=== PATIENT | male | born 1940 | race Caucasian/White ===

== ENCOUNTER 2017-01-05 08:00 | Outpatient (RCR) ==
[2015-06-21 22:37] VITALS: BMI 24.9
--- NOTE | 2016-12-22 15:01 | RS.OPPTEV2 ---
Date of Note: 12/21/16 Visit #: 1 Date of Evaluation: 12/21/16 Payer Source: MEDICARE Treatment Diagnosis: Gait abnormality, LE weakness History of Condition/Mechanism of Injury:: Patient reports having surgery to the cervical spine in July 2015 due to symptoms of LE weakness and decreased function. States symptoms have improved since surgery, but his legs continue to be weak. Functional Limitations: Standing, Squatting, Ambulation, Community Access/ Integration Current Subjective/complaints:: Patient reports leg weakness. States he is unable to stand very long or walk long distances. If he gets tired, he can hardly walk due to leg weakness. States he has numbness in the LE's at times, but this is much less than his symptoms prior to surgery. Reports he has very little pain, mostly soreness in his back. Denies dizziness. States he has decreased balance, especially when turning to change directions. Denies LE swelling. States she has COPD, which causes him to feel short of breath with walking. Medical History Medical History: COPD, Arthritis Medical History Comments:: History of low back pain Surgical History Comments:: Cervical spine surgery July 2015 with metal plating Smoking Status: Former smoker Hx Home Medications: Flomax Patient's Goals: His goal is to gain strength and improved balance. Functional Outcome Measure Tinetti: 22 (=21.5% impairment) - G Codes & Severity Modifier G Codes & Modifier: Mobility current CJ. Mobility goal CH Source of G Code score: Tinetti Assessment Observation - Observation Posture: Forward Head, Rounded Shoulders, Decreased Lumbar Lordosis Gait - Gait Pattern Gait Comments: Patient ambulates without an assistive device. He demonstrates minimal foot clearance, but does consistently clear both feet during swing phase. Demonstrates increased unsteadiness when turning to change directions. General Range of Motion: Bilateral LE AROM is WFL's. Muscle Strength: Bilateral hip strength 4 to 4+/5. Knee strength 4+/5, ankle strength 4+/5. Trunk strength 4/5. Balance - Sitting Balance Static Sitting Balance: Good Dynamic Sitting Balance: Good - Standing Balance Static Standing Balance: Good (-) Dynamic Standing Balance: Fair (+) - Comments Balance Assessment Comments: Patient demonstrates great difficulty with Limits of Stability program. He shows greatest difficulty hitting targets anterior and posterior to his VIRGIL. He has to finally move his feet to hit the targets. Coordination - Tests Bilateral Heel to Fabian: Mild Deviation Toe Tapping: Mild Deviation Comments: both tests show mild impairment with increased speed. Additional Comments: Additional Comments: Patient is able to perform transfers independently. He does use his UE's to perform sit to stand and is able to stand with one attempt. Bilateral hamstring length is limited. Demonstrates SLR left 35 degrees, right 35-40 degrees. Interventions - Exercise/Activities/Manual Therapy Exercises/Activities: Patient instructed in HS stretch, SLR's, and unsupported Ant/posterior weight shifting in sitting. Manual Therapy: NA HOME EXERCISE PROGRAM: HS stretch, SLR's, and unsupported Ant/posterior weight shifting in sitting - Charges Total Direct Minutes: 50 mins Total Treatment Time: 50 mins Procedures billed for this date of service:: [facility] Assessment Assessment: Patient presents to therapy with a diagnosis of balance disorder. He demonstrates LE weakness and impaired dynamic standing balance. He score 22/ 28 on Tinetti Assessment, showing him to be at risk for falls. He reports weakness limits his ability to walk community distances. He demonstrates good potential to benefit from strenthening exercises and coordination/balance activities to improve his functional ability and safety with ambulation. Patient Education: Education of diagnosis, Body/Joint mechanics, Home Exercise Program, Home Safety, Activity Modification, Education of Plan of Care Rehab Potential: Good Short Term Goals Goal #1: Bilateral hip strength 4+/5. Goal to be met by: 01/05/17 Goal #2: Trunk strength 4+/5. Goal to be met by: 01/05/17 Goal #3: Dynamic standing anterior/posterior balance improved to Good-/Good. Goal to be met by: 01/05/17 Goal #4: Patient to consistently turn while amb. with minimal disruption of gait. Goal to be met by: 01/05/17 [facility] Goals Goal #1: Pt knows HEP and to continue ex's to maintain functional level at D/C. Goal to be met by: 01/31/17 Goal #2: Score on Tinetti Assessment improved to 28/28. Goal to be met by: 01/31/17 Goal #3: Pt to amb. community distances with good safety & min. gait deviation. Goal to be met by: 01/31/17 Plan - Treatment to be Provided Procedures: Therapeutic Exercises, Therapeutic Activity, Neuromuscular Rehab, Patient Education Modalities: No Modalities - Treatment Plan Frequency: 2-3 X week Duration: 4 weeks ORDER # VISITS AND/OR THROUGH DATE: 01/31/17 - Treatment Code (1) Gait abnormality Code(s): R26.9 - UNSPECIFIED ABNORMALITIES OF GAIT AND MOBILITY Comments: R26.9 (2) Leg weakness, bilateral Code(s): R29.898 - OTH SYMPTOMS AND SIGNS INVOLVING THE MUSCULOSKELETAL SYSTEM Comments: R29.898 (3) Unstable balance Code(s): R26.89 - OTHER ABNORMALITIES OF GAIT AND MOBILITY Comments: r26.89
--- NOTE | 2016-12-23 09:26 | RS.OPPTDN ---
Subjective Date of Note: 12/23/16 Visit #: 2 Date of Evaluation: 12/21/16 Payer Source: MEDICARE Treatment Diagnosis: Gait abnormality, LE weakness Current Subjective/complaints:: Patient reports the R leg feels weaker than the L ,has difficulty with standing still more than with walking. Interventions - Exercise/Activities/Manual Therapy Exercises/Activities: 40 mins. of 90 / 90 hamstring stretches,then contract- relax for same stretch,3/10 SLR's to both LE's.Unsupported weight shift all directions for balance. Total minutes of Exercise: 40 Manual Therapy: NA Total minutes of Manual Therapy: 0 HOME EXERCISE PROGRAM: HS stretch, SLR's, and unsupported Ant/posterior weight shifting in sitting - Charges Total Direct Minutes: 40 Total Treatment Time: 40 Procedures billed for this date of service:: ex 3 Assessment: Patient has moderate hams. tightness bilaterally,L > R.he has good return demo of SLR with out pain.He reports weight shift to the R affects him more than to the L.He is very attentive and compliant to HEP recommendations. Patient Education: Education of diagnosis, Body/Joint mechanics, Home Exercise Program, Home Safety, Activity Modification, Education of Plan of Care Patient demonstrates compliance with HEP?: Yes Short Term Goals Goal #1: Bilateral hip strength 4+/5. Goal to be met by: 01/05/17 Goal #2: Trunk strength 4+/5. Goal to be met by: 01/05/17 Goal #3: Dynamic standing anterior/posterior balance improved to Good-/Good. Goal to be met by: 01/05/17 Goal #4: Patient to consistently turn while amb. with minimal disruption of gait. Goal to be met by: 01/05/17 Air Purifier Servicer Goals Goal #1: Pt knows HEP and to continue ex's to maintain functional level at D/C. Goal to be met by: 01/31/17 Goal #2: Score on Tinetti Assessment improved to . Goal to be met by: 01/31/17 Goal #3: Pt to amb. community distances with good safety & min. gait deviation. Goal to be met by: 01/31/17 Plan PLAN OF CARE EXPIRES ON:: 01/31/17 ORDER # VISITS AND/OR THROUGH DATE: 01/31/17 PLAN: Continue Plan of Care
--- NOTE | 2016-12-26 08:58 | RS.OPPTDN ---
Subjective Date of Note: 12/26/16 Visit #: 3 Date of Evaluation: 12/21/16 Payer Source: MEDICARE Treatment Diagnosis: Gait abnormality, LE weakness Current Subjective/complaints:: Patient rep[orts soreness from last PT session .but no sharp pain. Pain Assessment - Pain Description Pain Description: Dull, Aching Current Pain Intensity: not rated Interventions - Exercise/Activities/Manual Therapy Exercises/Activities: 40 mins. of 90 / 90 hamstring stretches,isometric hip abd /adduction , unsupported weight shift for trunk control,also with resistance given all directions.Leg press,3/15 reps with 60 # resistance,then one set of 15 reps. with L LE only @ 30 #. Total minutes of Exercise: 40 Manual Therapy: NA Total minutes of Manual Therapy: 0 HOME EXERCISE PROGRAM: HS stretch, SLR's, and unsupported Ant/posterior weight shifting in sitting - Charges Total Direct Minutes: 40 Total Treatment Time: 40 Procedures billed for this date of service:: ex 3 Assessment: Patient has improved hamstring flexibility bilaterally,with R tighter than L again today.The R LE strength is less than L ,but functional.He reports fatigue only with exercises today.He is very attentive to HEP recommendations. Patient Education: Body/Joint mechanics, Home Exercise Program, Home Safety, Education of Plan of Care Patient demonstrates compliance with HEP?: Yes Short Term Goals Goal #1: Bilateral hip strength 4+/5. Goal to be met by: 01/05/17 Progress towards Goal:: Progressing Goal #2: Trunk strength 4+/5. Goal to be met by: 01/05/17 Progress towards Goal:: Progressing Goal #3: Dynamic standing anterior/posterior balance improved to Good-/Good. Goal to be met by: 01/05/17 Goal #4: Patient to consistently turn while amb. with minimal disruption of gait. Goal to be met by: 01/05/17 [facility] Goals Goal #1: Pt knows HEP and to continue ex's to maintain functional level at D/C. Goal to be met by: 01/31/17 Progress towards goal: Progressing Goal #2: Score on Tinetti Assessment improved to . Goal to be met by: 01/31/17 Goal #3: Pt to amb. community distances with good safety & min. gait deviation. Goal to be met by: 01/31/17 Plan PLAN OF CARE EXPIRES ON:: 12/26/16 ORDER # VISITS AND/OR THROUGH DATE: 01/31/17 PLAN: Continue Plan of Care
--- NOTE | 2016-12-29 09:00 | RS.OPPTDN ---
Subjective Date of Note: 12/29/16 Visit #: 4 Date of Evaluation: 12/21/16 Payer Source: MEDICARE Treatment Diagnosis: Gait abnormality, LE weakness Current Subjective/complaints:: Patient reports he can cross his legs easier, feels the therapy is helping.He also reports he is doing his HEP. Pain Assessment - Pain Description Pain Description: muscle soreness only Current Pain Intensity: not rated Interventions - Exercise/Activities/Manual Therapy Exercises/Activities: 50 mins. of 90 / 90 hamstring stretches,SKTC,DKTC,lower trunk rotation,piriformis stretches.Strengthening exercises on leg press,06/22 @ 75 # for both LE's,then 06/17 @ 30 # for R leg only.Instructed in heel cord stretches in supine or standing. Total minutes of Exercise: 50 Manual Therapy: NA Total minutes of Manual Therapy: 0 HOME EXERCISE PROGRAM: HS stretch, SLR's, and unsupported Ant/posterior weight shifting in sitting.Lumbar flexibility of SKTC,DKTC,LTR. - Charges Total Direct Minutes: 50 Total Treatment Time: 50 Procedures billed for this date of service:: ex3 Assessment: Patient has steadier transfers and gait,improved trunk rotation as he ambulates.He also has improved hamstring extensibility bilaterally. Patient Education: Education of diagnosis, Body/Joint mechanics, Home Exercise Program, Home Safety, Activity Modification, Education of Plan of Care Patient demonstrates compliance with HEP?: Yes Short Term Goals Goal #1: Bilateral hip strength 4+/5. Goal to be met by: 01/05/17 Progress towards Goal:: Progressing Goal #2: Trunk strength 4+/5. Goal to be met by: 01/05/17 Progress towards Goal:: Progressing Goal #3: Dynamic standing anterior/posterior balance improved to Good-/Good. Goal to be met by: 01/05/17 Progress towards Goal:: Progressing Goal #4: Patient to consistently turn while amb. with minimal disruption of gait. Goal to be met by: 01/05/17 [facility] Goals Goal #1: Pt knows HEP and to continue ex's to maintain functional level at D/C. Goal to be met by: 01/31/17 Progress towards goal: Progressing Goal #2: Score on Tinetti Assessment improved to . Goal to be met by: 01/31/17 Goal #3: Pt to amb. community distances with good safety & min. gait deviation. Goal to be met by: 01/31/17 Plan PLAN OF CARE EXPIRES ON:: 01/31/17 ORDER # VISITS AND/OR THROUGH DATE: 01/31/17 PLAN: Continue Plan of Care
--- NOTE | 2016-12-30 09:00 | RS.OPPTDN ---
Subjective Date of Note: 12/30/16 Visit #: 5 Date of Evaluation: 12/21/16 Payer Source: MEDICARE Treatment Diagnosis: Gait abnormality, LE weakness Current Subjective/complaints:: Patient reports increased mscle soreness from the last session.He feels the therapy continues to be helping.He reports it is becoming easier to get up from a chair,and feels steadier doing this. Pain Assessment - Pain Description Pain Description: Dull, Aching Pain Description: muscle soreness only Current Pain Intensity: not rated Interventions - Exercise/Activities/Manual Therapy Exercises/Activities: 50 mins. of [employer]ANCE [employer] for limits of stability, weight shifting,toss and catch. Total minutes of Exercise: 50 Manual Therapy: NA Total minutes of Manual Therapy: 0 HOME EXERCISE PROGRAM: HS stretch, SLR's, and unsupported Ant/posterior weight shifting in sitting.Lumbar flexibility of SKTC,DKTC,LTR. - Charges Total Direct Minutes: 50 Total Treatment Time: 50 Procedures billed for this date of service:: ex3 Assessment: Patient has increased LE strength,steadier transfers and gait as the trunk strength is also improving.He continues to be highly motivated to improve. Patient Education: Education of diagnosis, Body/Joint mechanics, Home Exercise Program, Home Safety, Activity Modification, Education of Plan of Care Patient demonstrates compliance with HEP?: Yes Short Term Goals Goal #1: Bilateral hip strength 4+/5. Goal to be met by: 01/05/17 Progress towards Goal:: Progressing Goal #2: Trunk strength 4+/5. Goal to be met by: 01/05/17 Progress towards Goal:: Progressing Goal #3: Dynamic standing anterior/posterior balance improved to Good-/Good. Goal to be met by: 01/05/17 Progress towards Goal:: Progressing Goal #4: Patient to consistently turn while amb. with minimal disruption of gait. Goal to be met by: 01/05/17 Progress towards Goal:: Progressing It Professional Goals Goal #1: Pt knows HEP and to continue ex's to maintain functional level at D/C. Goal to be met by: 01/31/17 Progress towards goal: Progressing Goal #2: Score on Tinetti Assessment improved to . Goal to be met by: 01/31/17 Goal #3: Pt to amb. community distances with good safety & min. gait deviation. Goal to be met by: 01/31/17 Progress towards goal: Progressing Plan PLAN OF CARE EXPIRES ON:: 01/31/17 ORDER # VISITS AND/OR THROUGH DATE: 01/31/17 PLAN: Continue Plan of Care
--- NOTE | 2017-01-03 09:07 | RS.OPPTDN ---
Subjective Date of Note: 01/03/17 Visit #: 6 Date of Evaluation: 12/21/16 Payer Source: MEDICARE Treatment Diagnosis: Gait abnormality, LE weakness Current Subjective/complaints:: Patient feels his legs are getting stronger.He also hasless muscle soreness today.He has the AM stiffness present ,which improves as the day progresses. Pain Assessment - Pain Description Pain Description: Tightness Pain Description: muscle soreness only Current Pain Intensity: 0 Interventions - Exercise/Activities/Manual Therapy Exercises/Activities: 50 mins. of strengthening and balance exercises including leg press ,4/15 @ 60 # using both LE's.therapy ball exercises for core strengthening and sitting balance,supine exercises with 2.5 # doing heelslides.green theraband for hip abd /adduction.Passive hamstring stretches bilaterally x 15 each LE. Total minutes of Exercise: 50 Manual Therapy: NA Total minutes of Manual Therapy: 0 HOME EXERCISE PROGRAM: HS stretch, SLR's, and unsupported Ant/posterior weight shifting in sitting.Lumbar flexibility of SKTC,DKTC,LTR. - Charges Total Direct Minutes: 50 Total Treatment Time: 50 Procedures billed for this date of service:: ex 3 Assessment: Patient has improved, with streadier transfers and gait.He has increased LE strength,and improved hamstring extensibility.He is motivated and compliant to HEP. Patient Education: Education of diagnosis, Body/Joint mechanics, Home Exercise Program, Home Safety, Activity Modification, Education of Plan of Care Patient demonstrates compliance with HEP?: Yes Short Term Goals Goal #1: Bilateral hip strength 4+/5. Goal to be met by: 01/05/17 Progress towards Goal:: Progressing Goal #2: Trunk strength 4+/5. Goal to be met by: 01/05/17 Progress towards Goal:: Progressing Goal #3: Dynamic standing anterior/posterior balance improved to Good-/Good. Goal to be met by: 01/05/17 Progress towards Goal:: Progressing Goal #4: Patient to consistently turn while amb. with minimal disruption of gait. Goal to be met by: 01/05/17 Progress towards Goal:: Progressing Idea Worker Goals Goal #1: Pt knows HEP and to continue ex's to maintain functional level at D/C. Goal to be met by: 01/31/17 Progress towards goal: Progressing Goal #2: Score on Tinetti Assessment improved to . Goal to be met by: 01/31/17 Goal #3: Pt to amb. community distances with good safety & min. gait deviation. Goal to be met by: 01/31/17 Progress towards goal: Progressing Plan PLAN OF CARE EXPIRES ON:: 01/31/17 ORDER # VISITS AND/OR THROUGH DATE: 01/31/17 PLAN: Continue Plan of Care
--- NOTE | 2017-01-05 08:46 | RS.OPPTDN ---
Subjective Date of Note: 01/05/17 Visit #: 7 Date of Evaluation: 12/21/16 Payer Source: MEDICARE Treatment Diagnosis: Gait abnormality, LE weakness Current Subjective/complaints:: Patient reports his balance is a little worse this morning,but he feels it is his sinuses,plans to stop by office after PT.He is requesting more stretches as opposed to strengthening today, as he is sore from last session. Pain Assessment - Pain Description Pain Description: Tightness Pain Description: muscle soreness only Current Pain Intensity: 0 Interventions - Exercise/Activities/Manual Therapy Exercises/Activities: 35 mins. total of pelvic tilts,SKTC,DKTC,lower trunk rotation.piriformis stretches,figure 4 ,hip IR/ER,multiple reps. each exercise, except figure 4 due to this elicits hip pain. Total minutes of Exercise: 35 Manual Therapy: NA Total minutes of Manual Therapy: 0 HOME EXERCISE PROGRAM: HS stretch, SLR's, and unsupported Ant/posterior weight shifting in sitting.Lumbar flexibility of SKTC,DKTC,LTR. - Charges Total Direct Minutes: 35 Total Treatment Time: 35 Procedures billed for this date of service:: ex 2 Short Term Goals Goal #1: Bilateral hip strength 4+/5. Goal to be met by: 01/05/17 Progress towards Goal:: Progressing Goal #2: Trunk strength 4+/5. Goal to be met by: 01/05/17 Progress towards Goal:: Progressing Goal #3: Dynamic standing anterior/posterior balance improved to Good-/Good. Goal to be met by: 01/05/17 Progress towards Goal:: Progressing Goal #4: Patient to consistently turn while amb. with minimal disruption of gait. Goal to be met by: 01/05/17 Progress towards Goal:: Progressing Director Of Accounting Goals Goal #1: Pt knows HEP and to continue ex's to maintain functional level at D/C. Goal to be met by: 01/31/17 Progress towards goal: Partially Met Goal #2: Score on Tinetti Assessment improved to . Goal to be met by: 01/31/17 (N/A today) Goal #3: Pt to amb. community distances with good safety & min. gait deviation. Goal to be met by: 01/31/17 Progress towards goal: Partially Met Plan PLAN OF CARE EXPIRES ON:: 01/31/17 ORDER # VISITS AND/OR THROUGH DATE: 01/31/17 PLAN: Continue Plan of Care
== END 2017-01-07 ==
PROVIDERS: ATTEND Family Medicine
DX: R26.89 Other abnormalities of gait and mobility (principal)

== ENCOUNTER 2017-03-28 06:53 | Day surgery (SDC) ==
[2015-06-21 22:37] VITALS: BMI 24.9
[2017-03-28] MEDS ORDERED: LIDOCAINE 1% 20 ML MDV ID STA (07:43)
[2017-03-28] MEDS ORDERED: SYMBICORT 160-4.5 MCG INHALER IH ONE (07:58)
[2017-03-28] MEDS ORDERED: DIPRIVAN 20 ML VIAL IVP ONE (08:53)
[2017-03-28] MEDS ORDERED: VERSED ONE (08:53)
[2017-03-28 13:33] VITALS: BP 117/63; TEMP 97.6
--- NOTE | 2017-03-29 08:55 | OP ---
INDICATIONS FOR PROCEDURE: 76 year old gentleman presents for colonoscopy exam. He has a family history of colon polyps involving a brother in his 60's and a daughter in her 50's. He has history of polyps with his last colonoscopy 5 years ago. Unknown pathology. MEDICATIONS: SEE ANESTHESIA NOTES. PROCEDURE: COLONOSCOPY. REPORT: The risks, benefits, alternatives and limitations were discussed in detail with the patient. Informed consent was obtained. After adequate sedation was achieved, a digital rectal exam revealed good tone, no masses. The colonoscope was introduced into the rectum and advanced under direct visual guidance to the cecum. The cecum was identified by the appendiceal orifice and IC valve. I then slowly the scope in circumferential manner and examined the mucosa quite carefully. I looked on the proximal and distal sides of the folds and flexures the best as possible. I was able to retroflex the scope in the right colon as well as the left colon. The colonic mucosa is unremarkable it's entire length except for small mouth diverticuli scatter throughout the sigmoid. On retroflex view of the anal canal there was small anal skin tag. No other abnormalities were noted. The prep was good. Withdraw time was 7 minutes and 26 seconds. The patient tolerated the procedure well with stable vital signs and pulse oximetry throughout. IMPRESSION: 1. Diverticulosis 2. Small anal skin tag RECOMMENDATIONS: 1. High fiber diet 2. Office visit as needed 3. Consider colonoscopy examination again in 5 years if he is clinically well or sooner if there are any signs or symptoms to indicate otherwise. CC: Dr. Genia KC
== END 2017-03-28 10:08 | disposition home or self-care (01) ==
LOC: SURG 06:53
PROVIDERS: ATTEND Internal Medicine Gastroenterology
DX: Z86.010 Personal history of colon polyps (principal); Z83.71 Family history of colonic polyps; K57.30 Diverticulosis of large intestine without perforation or abscess without bleeding; K64.4 Residual hemorrhoidal skin tags

== ENCOUNTER 2018-08-13 12:15 | Emergency (ER) | payer OTHER ==
[2018-08-13 12:29] VITALS: BP 135/71; TEMP 96.3
[2018-08-13 12:34] VITALS: BMI 23.3
--- NOTE | 2018-08-13 13:36 | CT ---
EXAM: CT of the chest without contrast History: Cough. Comparison: Chest radiograph 06/22/2015 Technique: Multiplanar CT images through the thorax were obtained without the administration of IV c ontrast Findings: Heart size is normal. No pericardial effusion. Coronary calcifications. No thoracic aor tic aneurysm. No axillary lymphadenopathy. No pathologically enlarged mediastinal lymph nodes. Caridad luation for hilar lymph nodes is limited due to the lack of contrast administration. Severe emphysem a. No consolidation. No pleural fluid and no pneumothorax. No suspicious lung masses or lung nodul es. Within the visualized upper abdomen, no acute findings. Osteopenia. Burst fracture of T12. Impression: 1. No acute intrathoracic process. 2. Severe emphysema. 3. Coronary artery disease. 4. Burst fracture of T12
--- NOTE | 2018-08-13 13:42 | CT ---
EXAM: CT LUMBAR SPINE HISTORY: Cough, low back pain. No recent trauma. TECHNIQUE: CT lumbar spine without contrast. 3-mm axial sections. Coronal and sagittal reformation s. COMPARISON: None FINDINGS: Bones are significantly demineralized. There is severe degenerative disc and facet disease throughou t although most apparent L3-L5. Scoliosis is noted. Sacroiliac joints are intact. There are verteb ral body deformities which are relatively mild throughout the lumbar level none of which appear obvio usly acute. The degenerative changes lead to multilevel central canal and neural foraminal narrowing with the central canal narrowing probably most pronounced at L2/L3, moderate to severe. Neural fora weston narrowing is probably greatest at L3/L4 and L4/L5 where there is at least moderate neural zoie inal narrowing greater on the left. Incidental note of a severe vertebral body compression deformity at L1 which appears to have an acute component. This fracture extends to the anterior pedicles bilaterally. There is no significant ret ro pulsion. There is near complete loss of vertebral body height at the midportion of this vertebral body. No gross paraspinal hematoma. Incidental findings include atherosclerotic disease and divert iculosis of the colon. IMPRESSION: 1. Demineralization and degenerative changes of the lumbar level without obvious acute fracture at t he lumbar level. 2. Severe vertebral body compression fracture at T12 with what appears to represent an acute compone nt.
--- NOTE | 2018-08-13 14:38 | ED.PDOC ---
General ED Provider: Dr. PADMA FELIX Chief Complaint: Back Pain Stated Complaint: back pain none injury, loss of appetite, generalized weakness Time Seen by Physician: 12:30 (seen with nursing staff at all times trauma denied ) Mode of Arrival: Walk-In Information Source: Patient, Family Exam Limitations: No limitations Primary Care Provider: AYRIEL JONES Nursing and Triage Documentation Reviewed and Agree: Yes Does patient meet sepsis criteria?: No System Inflammatory Response Syndrome: Not Applicable Sepsis Protocol: For patient's 13 years and over: Temp is 96.8 and below OR 101 and greater Pulse >90 BPM Resp >20/minute Acutely Altered Mental Status Are patient's symptoms suggestive of a new infection, such as: -Pneumonia -Skin, Soft Tissue -Endocarditis -UTI -Bone, Joint Infection -Implantable Device -Acute Abdominal Infection -Wound Infection -Meningitis -Blood Stream Catheter Infection -Unknown Miscellaneous Complaint Exam - Complex/Multi-System Complaint/Exam Onset/Duration: pt not sure slowly progressive Symptoms Are: Still present Episodes Lasting: Weeks Initial Severity: Mild Current Severity: Mild Location of Pain: lower back Pain Radiates to: no Character: dull Aggravating: nothing Alleviating: none Associated Signs and Symptoms: Reports: Weakness, Cough. Denies: Decreased responsiveness, Confusion, Agitation, Dizziness, Syncope, Headache, Short of air , Wheezing, Hemoptysis, Chest pain, Palpitations, Edema, Nausea, Vomiting, Diarrhea, Abdominal pain, Back pain, Dysuria, Hematemesis, Melena, Decreased oral intake, Fever, Diaphoresis, Immunocompromised, Anticoagulation Therapy, Recent medication changes, Indwelling medical scientist, Prior MRSA, Prior VRE, Recent trauma, Remote trauma Recent Echo/LV Function: No Respiratory Distress: None JVD Present: No Tachypnea Present: No Stridor Present: No Abdominal Findings: Present: Normal findings Glascow Coma Scale (see protocol): 15 Meningeal Signs Positive: No Focal Weakness: Present: None Focal Sensory Loss: Present: None Gait: Normal Gag Reflex Present: Yes Skin Findings: Present: Normal findings Joint Swelling Present: No Differential Diagnosis: Metabolic Abnormality, UTI, Other Quality Indicators for Cardiac Chest Pain: EKG in 10min. Quality Indicators for AMI: EKG in 10min. Quality Indicator For Non-Traumatic Chest Pain/Syncope: EKG Performed Review of Systems - Review Of Systems Constitutional: Reports: Malaise, Weakness, Loss of appetite Eyes: Reports: No symptoms Ears, Nose, Mouth, Throat: Reports: No symptoms Respiratory: Reports: No symptoms Cardiac: Reports: No symptoms GI: Reports: Abdominal pain : Reports: No symptoms Musculoskeletal: Reports: Back pain Skin: Reports: No symptoms Neurological: Reports: No symptoms Endocrine: Reports: No symptoms Hematologic/Lymphatic: Reports: No symptoms All Other Systems: Reviewed and Negative Past Medical History - Past Medical History Previously Healthy: Yes Endocrine: Reports: None Cardiovascular: Reports: None Respiratory: Reports: None Hematological: Reports: None Gastrointestinal: Reports: None Genitourinary: Reports: None Neuro/Psych: Reports: None Musculoskeletal: Reports: None Cancer: Reports: None - Surgical History General Surgical History: Reports: Unknown - Family History Family History: Reports: Unknown - Social History Smoking Status: Former smoker Hx Substance Use: No Alcohol Screening: None Physical Exam - Physical Exam Appearance: Well-appearing, No pain distress, Well-nourished Eyes: LEYDA, EOMI, Conjunctiva clear ENT: Ears normal, Nose normal, Oropharynx normal Respiratory: Airway patent, Breath sounds clear, Breath sounds equal, Respirations nonlabored Cardiovascular: RRR, Pulses normal, No rub, No murmur GI/: Soft, Nontender, No masses, Bowel sounds normal, No Organomegaly Musculoskeletal: Normal strength Skin: Warm, Dry, Normal color Neurological: Sensation intact, Motor intact, Reflexes intact, Cranial nerves intact, Alert, Oriented Psychiatric: Affect appropriate, Mood appropriate Interpretation - Radiology Interpretation Radiology Interpretation By: Radiologist Radiology Results: Positive (t12 fx) - Cargo Inspector Rate: Normal Rhythm: Sinus Ectopy: None - EKG Interpretation Rate: Normal Rhythm: Sinus Ectopy: None [place]: NL ST Segment: Normal Re-Evaluation - Re-Evaluation Time of Re-Evaluation: 13:00 Status: Unchanged Vital Signs Stable: Yes Appearance: NAD Lungs: Clear Skin: Warm and Dry Neuro: Alert and Oriented X3 CV: RRR - Re-Evaluation Time of Re-Evaluation: 14:41 Status: Unchanged Vital Signs Stable: Yes Appearance: NAD Skin: Warm and Dry Neuro: Alert and Oriented X3 CV: RRR Physician Notification - Case Discussed Physician Notified: pmd Time of Notification: 14:41 (transfer ) Critical Care Note - Critical Care Note Total Time (mins): 0 Course - Course Hematology/Chemistry: 08/13/18 12:47 08/13/18 12:47 Orders, Labs, Meds: Lab Review 08/13/18 08/13/18 08/13/18 12:47 12:47 12:47 WBC 5.91 RBC 4.19 L Hgb 12.9 L Hct 39.0 L MCV 93.1 MCH 30.8 MCHC 33.1 RDW Coeff of Anthony 12.4 Plt Count 184 Immature Gran % (Auto) 0.5 Neut % (Auto) 73.0 Lymph % (Auto) 15.4 Marshall % (Auto) 8.8 Eos % (Auto) 2.0 Baso % (Auto) 0.3 Immature Gran # (Auto) 0.0 Neut # (Auto) 4.3 Lymph # (Auto) 0.9 Marshall # (Auto) 0.5 Eos # (Auto) 0.1 Baso # (Auto) 0.0 PT 10.4 INR 1.04 APTT 26.2 Puncture Site O2 Saturation ABG pH ABG pCO2 ABG pO2 ABG HCO3 ABG Total CO2 ABG Base Excess Balwinder Test FiO2 % Sodium 136.7 Potassium 4.13 Chloride 97.9 L Carbon Dioxide 30.4 H Anion Gap 12.53 BUN 24.5 H Creatinine 0.70 Estimated GFR (MDRD) 109.00 BUN/Creatinine Ratio 35.00 Glucose 137.9 H Calcium 9.16 Total Bilirubin 0.62 AST 29.8 ALT 20.3 Alkaline Phosphatase 125.1 H Total Creatine Kinase 54.0 L Troponin I < 0.012 Total Protein 7.23 Albumin 4.32 Globulin 2.91 Albumin/Globulin Ratio 1.48 08/13/18 12:50 WBC RBC Hgb Hct MCV MCH MCHC RDW Coeff of Anthony Plt Count Immature Gran % (Auto) Neut % (Auto) Lymph % (Auto) Marshall % (Auto) Eos % (Auto) Baso % (Auto) Immature Gran # (Auto) Neut # (Auto) Lymph # (Auto) Marshall # (Auto) Eos # (Auto) Baso # (Auto) PT INR APTT Puncture Site R rad O2 Saturation 95.0 ABG pH 7.433 ABG pCO2 40.6 ABG pO2 74.0 L ABG HCO3 27.1 H ABG Total CO2 28 ABG Base Excess 3 H Balwinder Test + FiO2 % 21.0 Sodium Potassium Chloride Carbon Dioxide Anion Gap BUN Creatinine Estimated GFR (MDRD) BUN/Creatinine Ratio Glucose Calcium Total Bilirubin AST ALT Alkaline Phosphatase Total Creatine Kinase Troponin I Total Protein Albumin Globulin Albumin/Globulin Ratio Orders Category Date Time Status ABG DRAW REQUEST Stat CARDIO 08/13/18 12:41 Completed EKG-(ED ONLY) Stat CARDIO 08/13/18 12:41 Completed ABG Stat LAB 08/13/18 12:50 Completed CBC W/ AUTO DIFF Stat LAB 08/13/18 12:47 Completed COMPREHENSIVE METABOLIC PANEL Stat LAB 08/13/18 12:47 Completed CREATINE KINASE Stat LAB 08/13/18 12:47 Completed PARTIAL THROMBOPLASTIN TIME Stat LAB 08/13/18 12:47 Completed PT WITH INR Stat LAB 08/13/18 12:47 Completed TROPONIN I Stat LAB 08/13/18 12:47 Completed URINALYSIS C & S IF INDICATED Stat LAB 08/13/18 12:[address] CHEST W/O CONTRAST Stat RADS 08/13/18 12:[address] LUMBAR SPINE W/O CONTRAST Stat RADS 08/13/18 12:41 Completed Vital Signs: Temp Pulse Resp BP Pulse Ox 08/13/18 12:19 96.3 F L 85 18 135/71 93 L Departure - Departure Time of Disposition: 14:41 (back pain , compression noneinjury fracture higfh alkposph rule out prostatic mets ) Disposition: TSF SHORT-TRM HOSP Discharge Problem: Backache T12 compression fracture Qualifiers: Encounter type: initial encounter Qualified Code(s): S22.080A - Wedge compression fracture of T11-T12 vertebra, initial encounter for closed fracture Instructions: Low Back Strain (ED) Condition: Good Pt referred to PMD for follow-up: Yes IPMP verified?: No Additional Instructions: Please call your Family Physician as soon as possible to schedule a follow-up appointment. Allergies/Adverse Reactions: Allergies codeine Adverse Reaction (Verified 08/13/18 12:18) MAKES HIM JUMPY Home Medications: Ambulatory Orders Tamsulosin HCl [Flomax] 0.4 mg PO DAILY 04/14/13 Budesonide/Formoterol Fumarate [Symbicort 160-4.5 Mcg Inhaler] 2 puff IH BID
== END 2018-08-13 14:53 | disposition short-term general hospital (02) ==
LOC: ED 12:15
DX: S22.080A Wedge compression fracture of T11-T12 vertebra, initial encounter for closed fracture (principal); M54.5 Low back pain; R53.1 Weakness; R05 Cough
CPT/HCPCS: 36415; 80053; 82550; 82803; 84484; 85025; 85610; 85730; 93005; 93010; 99285

== ENCOUNTER 2018-09-13 08:15 | Outpatient (CLI) | payer OTHER ==
--- NOTE | 2018-09-13 09:07 | US ---
EXAM: Renal ultrasound. History: Right flank pain. Technique: Multiple sonographic images through the kidneys were obtained. Color duplex Doppler was used to interrogate vascular flow. Findings: The right kidney measures 11.2 cm in long length demonstrating normal cortical echogenicity without e vidence for hydronephrosis, mass or shadowing calculus. The left kidney measures 11.3 cm in long length demonstrating normal cortical echogenicity without ev idence for hydronephrosis, mass or shadowing calculus. No bladder wall thickening. Impression: Sonographically normal kidneys
== END 2018-09-13 08:16 | disposition home or self-care (01) ==
LOC: RAD 08:15
PROVIDERS: ATTEND Family Medicine
DX: R10.9 Unspecified abdominal pain (principal)